=== PATIENT | male | born 1955 | race Two or more races ===

== ENCOUNTER 2020-01-21 16:40 | Inpatient (IN) | payer MEDICARE ==
[~2020-01-21] VITALS: Ht 180.3 cm; Wt 113.4 kg
[2020-01-21] MEDS ORDERED: CEFTRIAXONE 1 GM IV SCH (17:00)
[2020-01-21] MEDS ORDERED: LORAZEPAM 0.5MG TABLET PO PRN (17:45)
[2020-01-21] MEDS ORDERED: ACETAMINOPHEN 325MG TABLET PO PRN (17:45)
[2020-01-21] MEDS ORDERED: METHYL SALICYLATE/MENTHOL CREAM 85GM TOP PRN (17:45)
[2020-01-21] MEDS ORDERED: CLONIDINE 0.1MG TABLET PO PRN (17:45)
[2020-01-21] MEDS ORDERED: ONDANSETRON 4MG ODT PO PRN (18:12)
[2020-01-21] MEDS: HYDROCODONE/ACETAMINOPHEN 5/325MG TABLET PO PRN (18:24)
[2020-01-21 20:00] VITALS: BP 129/72
[2020-01-21 20:09] VITALS: BP 135/73
[2020-01-21] MEDS ORDERED: VANCOMYCIN 2,000 MG in DEXT 5% WATER 500 ML IV SCH (21:00)
[2020-01-21] MEDS: PANTOPRAZOLE 40MG DR TABLET PO SCH (21:19)
[2020-01-21] MEDS ORDERED: CLONIDINE 0.1MG TABLET PO SCH (22:00)
[2020-01-21] MEDS: CEFTRIAXONE 1,000 MG in DEXTROSE 5% WATER 50 ML IV SCH (23:06)
[2020-01-22] MEDS: HYDROCODONE/ACETAMINOPHEN 5/325MG TABLET PO PRN ×6 (01:27→23:45)
[2020-01-22] MEDS ORDERED: AMLO10TA4 PO (01:47)
[2020-01-22] MEDS ORDERED: ATOR10TA PO (01:48)
[2020-01-22] MEDS ORDERED: TAMS-11 PO (01:50)
[2020-01-22] MEDS ORDERED: SENN-170 PO (01:50)
[2020-01-22] MEDS: VANCOMYCIN 1 G PREMIX 200 ML IV SCH ×3 (06:04→23:52)
[2020-01-22 07:15] LABS: BASOPHILS % 0.7 % (0.0-2.0); EOSINOPHILS % 0.6 % (0.0-5.0); HEMATOCRIT. 25.1 % (42.0-52.0); HEMOGLOBIN. 8.4 g/dL (14.0-18.0); LYMPHOCYTES % 9.9 % (20.0-50.0); MEAN CORPUSCULAR HEMOGLOBIN 30.1 pg (28.0-32.0); MEAN CORPUSCULAR VOLUME 90.6 fL (80.0-94.0); MEAN PLATELET VOLUME 8.3 fl (7.4-10.4); NEUTROPHILS % 83.8 % (40.0-76.0); PLATELET 538 x1000/uL (130-400); RED BLOOD CELL COUNT 2.78 mill/uL (4.7-6.1); RED CELL DISTRIBUTION WIDTH 15.4 % (11.6-14.6)
[2020-01-22 07:35] VITALS: BP 134/73
[2020-01-22 07:40] LABS: PROSTRATE SPECIFIC AG TOTAL 3.33 ng/mL (0.0-4.0)
[2020-01-22 08:01] LABS: CHLORIDE 100 mEq/L (98-107)
[2020-01-22] MEDS: PANTOPRAZOLE 40MG DR TABLET PO SCH ×2 (08:10→20:07)
[2020-01-22] MEDS: LIDOCAINE 5% PATCH TOP SCH ×2 (08:11→08:17)
[2020-01-22 08:16] LABS: HDL CHOLESTEROL 30 mg/dL (40-59); LDL CHOLESTEROL 43 mg/dL (5-100); PHOSPHORUS 3.8 mg/dL (2.5-4.9)
[2020-01-22 08:19] LABS: TOTAL IRON BINDING CAPACITY 154 ug/dL (250-450)
[2020-01-22] MEDS ORDERED: NYSTATIN/TRIAMCIN OINT 15GM TOP PRN (10:00)
[2020-01-22] MEDS ORDERED: TAMSULOSIN HCL 0.4MG SR CAPSULE PO SCH (10:00)
[2020-01-22] MEDS: TAMSULOSIN HCL 0.4MG SR CAPSULE PO SCH ×2 (12:11→20:07)
[2020-01-22] MEDS: MAGNESIUM OXIDE 400MG TABLET PO SCH ×2 (12:11→23:54)
[2020-01-22] MEDS: LACTULOSE 20G/30ML UDC PO SCH ×3 (12:12→20:00)
[2020-01-22] MEDS ORDERED: SENNOSIDES/DOCUSATE SOD 8.6/50MG TABLET PO PRN (13:00)
[2020-01-22] MEDS ORDERED: NYSTATIN/TRIAMCIN CREAM 30GM TOP PRN (13:00)
[2020-01-22] MEDS: AMLODIPINE 10MG TABLET PO SCH (15:11)
[2020-01-22 19:35] VITALS: BP 132/65
[2020-01-22] MEDS: CEFTRIAXONE 1,000 MG in DEXTROSE 5% WATER 50 ML IV SCH (20:07)
[2020-01-22] MEDS: ATORVASTATIN CALCIUM 20MG TABLET PO SCH (20:07)
[2020-01-22] MEDS: IRON SUCROSE COMPLEX 100 MG in SODIUM CHLORIDE 0.9% 100 ML IV SCH (21:30)
[2020-01-22 22:58] LABS: FOLIC ACID (FOLATE) SERUM 7.8 ng/mL (>5.38)
[2020-01-23 07:01] LABS: BASOPHILS % 0.2 % (0.0-2.0); HEMATOCRIT. 25.5 % (42.0-52.0); HEMOGLOBIN. 8.5 g/dL (14.0-18.0); LYMPHOCYTES % 10.9 % (20.0-50.0); MEAN CORPUSCULAR HEMOGLOBIN 30.2 pg (28.0-32.0); MEAN CORPUSCULAR VOLUME 91.1 fL (80.0-94.0); MEAN PLATELET VOLUME 7.8 fl (7.4-10.4); MONOCYTES % 6.6 % (2.0-8.0); NEUTROPHILS % 81.3 % (40.0-76.0); PLATELET 662 x1000/uL (130-400); RED CELL DISTRIBUTION WIDTH 15.3 % (11.6-14.6)
[2020-01-23 07:11] LABS: CHLORIDE 101 mEq/L (98-107)
[2020-01-23 07:19] LABS: VANCOMYCIN TROUGH 17.8 ug/mL (5.0-10.0)
[2020-01-23 08:00] VITALS: BP 135/76
[2020-01-23] MEDS: HYDROCODONE/ACETAMINOPHEN 5/325MG TABLET PO PRN ×4 (08:07→23:47)
[2020-01-23] MEDS: AMLODIPINE 10MG TABLET PO SCH (08:07)
[2020-01-23] MEDS: PANTOPRAZOLE 40MG DR TABLET PO SCH ×2 (08:07→21:28)
[2020-01-23] MEDS: LIDOCAINE 5% PATCH TOP SCH ×2 (08:08→08:25)
[2020-01-23] MEDS ORDERED: TAMSULOSIN HCL 0.4MG SR CAPSULE PO SCH (09:00)
[2020-01-23] MEDS: VANCOMYCIN 1 G PREMIX 200 ML IV SCH (10:23)
[2020-01-23] MEDS: MAGNESIUM OXIDE 400MG TABLET PO SCH ×2 (10:28→21:27)
[2020-01-23] MEDS ORDERED: NA PHOS,M-B/NA PHOS,DI-BA ENEMA 118ML PR SCH (12:00)
[2020-01-23] MEDS ORDERED: VANCOMYCIN 1 G PREMIX 200 ML IV SCH (18:00)
[2020-01-23 20:00] VITALS: BP 129/69
[2020-01-23] MEDS: IRON SUCROSE COMPLEX 100 MG in SODIUM CHLORIDE 0.9% 100 ML IV SCH (21:27)
[2020-01-23] MEDS: CLOTRIMAZOLE/BETAMETHASONE 1/0.05% CREAM 15GM TOP SCH (21:27)
[2020-01-23] MEDS: TAMSULOSIN HCL 0.4MG SR CAPSULE PO SCH (21:28)
[2020-01-23] MEDS: ATORVASTATIN CALCIUM 20MG TABLET PO SCH (21:28)
[2020-01-24] MEDS: HYDROCODONE/ACETAMINOPHEN 5/325MG TABLET PO PRN ×3 (06:07→16:46)
[2020-01-24 06:43] LABS: BASOPHILS % 0.3 % (0.0-2.0); EOSINOPHILS % 0.8 % (0.0-5.0); HEMATOCRIT. 25.1 % (42.0-52.0); HEMOGLOBIN. 8.6 g/dL (14.0-18.0); LYMPHOCYTES % 12.6 % (20.0-50.0); MEAN CORPUSCULAR HEMOGLOBIN 30.8 pg (28.0-32.0); MEAN CORPUSCULAR VOLUME 89.5 fL (80.0-94.0); MEAN PLATELET VOLUME 7.5 fl (7.4-10.4); MONOCYTES % 7.6 % (2.0-8.0); NEUTROPHILS % 78.7 % (40.0-76.0); PLATELET 691 x1000/uL (130-400); RED CELL DISTRIBUTION WIDTH 15.2 % (11.6-14.6)
[2020-01-24 07:02] LABS: CHLORIDE 101 mEq/L (98-107)
[2020-01-24 07:35] VITALS: BP 132/67
[2020-01-24] MEDS: PANTOPRAZOLE 40MG DR TABLET PO SCH ×2 (08:10→21:34)
[2020-01-24] MEDS: AMLODIPINE 10MG TABLET PO SCH (08:11)
[2020-01-24] MEDS: LIDOCAINE 5% PATCH TOP SCH (08:14)
[2020-01-24] MEDS: CLOTRIMAZOLE/BETAMETHASONE 1/0.05% CREAM 15GM TOP SCH ×2 (08:17→21:00)
[2020-01-24] MEDS: MAGNESIUM OXIDE 400MG TABLET PO SCH ×2 (11:02→21:34)
[2020-01-24 20:00] VITALS: BP 117/57
[2020-01-24] MEDS: ATORVASTATIN CALCIUM 20MG TABLET PO SCH (21:34)
[2020-01-24] MEDS: TAMSULOSIN HCL 0.4MG SR CAPSULE PO SCH (21:34)
[2020-01-25 00:22] LABS: CLARITY URINE CLEAR (CLEAR); COLOR URINE YELLOW (YELLOW); KETONES URINE NEGATIVE (NEGATIVE); LEUKOCYTE ESTERASE URINE NEGATIVE (NEGATIVE); NITRITE URINE NEGATIVE (NEGATIVE); OCCULT BLOOD URINE TRACE (NEGATIVE); PH URINE 7.5 (4.5-8.0); PROTEIN URINE NEGATIVE (NEGATIVE); SPECIFIC GRAVITY URINE 1.014 (1.005-1.030)
[2020-01-25] MEDS: HYDROCODONE/ACETAMINOPHEN 5/325MG TABLET PO PRN ×4 (00:46→18:58)
[2020-01-25 07:42] VITALS: BP 141/65
[2020-01-25] MEDS: PANTOPRAZOLE 40MG DR TABLET PO SCH ×2 (08:41→21:25)
[2020-01-25] MEDS: FERROUS SULFATE 325MG TABLET PO SCH ×2 (08:42→17:02)
[2020-01-25] MEDS: AMLODIPINE 10MG TABLET PO SCH (08:42)
[2020-01-25] MEDS: LIDOCAINE 5% PATCH TOP SCH ×2 (08:43→08:57)
[2020-01-25] MEDS: CLOTRIMAZOLE/BETAMETHASONE 1/0.05% CREAM 15GM TOP SCH ×2 (08:43→21:00)
[2020-01-25 08:50] LABS: BASOPHILS % 0.4 % (0.0-2.0); EOSINOPHILS % 0.8 % (0.0-5.0); HEMATOCRIT. 26.7 % (42.0-52.0); HEMOGLOBIN. 8.8 g/dL (14.0-18.0); LYMPHOCYTES % 14.5 % (20.0-50.0); MEAN CORPUSCULAR HEMOGLOBIN 29.9 pg (28.0-32.0); MEAN CORPUSCULAR VOLUME 90.5 fL (80.0-94.0); MEAN PLATELET VOLUME 7.4 fl (7.4-10.4); MONOCYTES % 7.7 % (2.0-8.0); NEUTROPHILS % 76.6 % (40.0-76.0); PLATELET 778 x1000/uL (130-400); RED BLOOD CELL COUNT 2.95 mill/uL (4.7-6.1); RED CELL DISTRIBUTION WIDTH 14.9 % (11.6-14.6)
[2020-01-25 09:11] LABS: CHLORIDE 100 mEq/L (98-107)
[2020-01-25] MEDS: MAGNESIUM OXIDE 400MG TABLET PO SCH (09:31)
[2020-01-25 11:39] LABS: HEPATITIS B SURFACE ANTIGEN NEGATIVE
[2020-01-25 12:08] LABS: HEPATITIS A AB IGM NEGATIVE (NEGATIVE)
[2020-01-25 13:47] VITALS: BP 100/82
[2020-01-25] MEDS ORDERED: METHOCARBAMOL 500MG TABLET PO PRN (18:15)
[2020-01-25 18:54] VITALS: BP 130/65
[2020-01-25 20:00] VITALS: BP 122/61
[2020-01-25] MEDS: ATORVASTATIN CALCIUM 20MG TABLET PO SCH (21:25)
[2020-01-25] MEDS: TAMSULOSIN HCL 0.4MG SR CAPSULE PO SCH (21:26)
[2020-01-26] MEDS: MAGNESIUM OXIDE 400MG TABLET PO SCH ×3 (02:21→20:58)
[2020-01-26] MEDS: GABAPENTIN 300MG CAPSULE PO SCH ×4 (02:21→20:51)
[2020-01-26] MEDS: HYDROCODONE/ACETAMINOPHEN 5/325MG TABLET PO PRN ×4 (02:31→20:53)
[2020-01-26 06:59] LABS: BASOPHILS % 0.9 % (0.0-2.0); CHLORIDE 101 mEq/L (98-107); EOSINOPHILS % 1.4 % (0.0-5.0); HEMATOCRIT. 25.4 % (42.0-52.0); HEMOGLOBIN. 8.7 g/dL (14.0-18.0); LYMPHOCYTES % 15.9 % (20.0-50.0); MEAN CORPUSCULAR HEMOGLOBIN 30.6 pg (28.0-32.0); MEAN CORPUSCULAR VOLUME 89.5 fL (80.0-94.0); MEAN PLATELET VOLUME 7.1 fl (7.4-10.4); MONOCYTES % 9.1 % (2.0-8.0); NEUTROPHILS % 72.7 % (40.0-76.0); PLATELET 721 x1000/uL (130-400); RED BLOOD CELL COUNT 2.84 mill/uL (4.7-6.1); RED CELL DISTRIBUTION WIDTH 15.4 % (11.6-14.6)
[2020-01-26 07:55] VITALS: BP 119/65
[2020-01-26] MEDS: FERROUS SULFATE 325MG TABLET PO SCH ×2 (08:50→16:15)
[2020-01-26] MEDS: PANTOPRAZOLE 40MG DR TABLET PO SCH ×2 (08:50→20:53)
[2020-01-26] MEDS: AMLODIPINE 10MG TABLET PO SCH (08:50)
[2020-01-26] MEDS: LIDOCAINE 5% PATCH TOP SCH (08:51)
[2020-01-26] MEDS: CLOTRIMAZOLE/BETAMETHASONE 1/0.05% CREAM 15GM TOP SCH ×2 (08:54→20:56)
[2020-01-26 10:33] VITALS: BP_SYST 78; BP_SYST 99; BP_DIAS 57; BP_DIAS 58
[2020-01-26 11:05] LABS: CREATINE KINASE 22 IU/L (39-308)
[2020-01-26 11:07] VITALS: BP 100/64
[2020-01-26] MEDS: FLUDROCORTISONE ACETATE 0.1MG TABLET PO SCH (14:13)
[2020-01-26 14:35] VITALS: BP 115/60
[2020-01-26 20:16] VITALS: BP 121/62
[2020-01-26] MEDS: ATORVASTATIN CALCIUM 20MG TABLET PO SCH (20:51)
[2020-01-26] MEDS: TAMSULOSIN HCL 0.4MG SR CAPSULE PO SCH (20:53)
[2020-01-27] MEDS: HYDROCODONE/ACETAMINOPHEN 5/325MG TABLET PO PRN ×3 (04:01→21:10)
[2020-01-27] MEDS: GABAPENTIN 300MG CAPSULE PO SCH ×3 (06:30→21:04)
[2020-01-27 06:54] LABS: BASOPHILS % 0.6 % (0.0-2.0); EOSINOPHILS % 1.7 % (0.0-5.0); HEMATOCRIT. 24.9 % (42.0-52.0); HEMOGLOBIN. 8.4 g/dL (14.0-18.0); LYMPHOCYTES % 18.3 % (20.0-50.0); MEAN CORPUSCULAR HEMOGLOBIN 30.1 pg (28.0-32.0); MEAN CORPUSCULAR VOLUME 89.5 fL (80.0-94.0); MEAN PLATELET VOLUME 7.1 fl (7.4-10.4); MONOCYTES % 10.3 % (2.0-8.0); NEUTROPHILS % 69.1 % (40.0-76.0); PLATELET 689 x1000/uL (130-400); RED BLOOD CELL COUNT 2.79 mill/uL (4.7-6.1); RED CELL DISTRIBUTION WIDTH 15.5 % (11.6-14.6)
[2020-01-27 07:01] LABS: CHLORIDE 101 mEq/L (98-107)
[2020-01-27] MEDS: PANTOPRAZOLE 40MG DR TABLET PO SCH ×2 (08:25→21:03)
[2020-01-27] MEDS: FLUDROCORTISONE ACETATE 0.1MG TABLET PO SCH (08:26)
[2020-01-27] MEDS: FERROUS SULFATE 325MG TABLET PO SCH ×2 (08:26→16:51)
[2020-01-27] MEDS: CLOTRIMAZOLE/BETAMETHASONE 1/0.05% CREAM 15GM TOP SCH ×2 (08:28→21:00)
[2020-01-27] MEDS: LIDOCAINE 5% PATCH TOP SCH (08:29)
[2020-01-27 08:30] VITALS: BP 132/68
[2020-01-27 11:00] VITALS: BP 119/67
[2020-01-27] MEDS: MAGNESIUM OXIDE 400MG TABLET PO SCH (11:04)
[2020-01-27] MEDS ORDERED: FLOR PO (13:07)
[2020-01-27] MEDS ORDERED: GABA-531 PO (13:07)
[2020-01-27] MEDS ORDERED: ATOR20TA PO (13:07)
[2020-01-27] MEDS ORDERED: TAMS-11 PO (13:07)
[2020-01-27 20:00] VITALS: BP 127/66
[2020-01-27] MEDS: TAMSULOSIN HCL 0.4MG SR CAPSULE PO SCH (21:03)
[2020-01-27] MEDS: ATORVASTATIN CALCIUM 20MG TABLET PO SCH (21:04)
[2020-01-28] MEDS: GABAPENTIN 300MG CAPSULE PO SCH (05:36)
[2020-01-28] MEDS: HYDROCODONE/ACETAMINOPHEN 5/325MG TABLET PO PRN (05:39)
[2020-01-28 06:00] LABS: BASOPHILS % 0.4 % (0.0-2.0); EOSINOPHILS % 1.9 % (0.0-5.0); HEMATOCRIT. 25.9 % (42.0-52.0); HEMOGLOBIN. 8.7 g/dL (14.0-18.0); LYMPHOCYTES % 19.2 % (20.0-50.0); MEAN CORPUSCULAR VOLUME 89.6 fL (80.0-94.0); MEAN PLATELET VOLUME 6.6 fl (7.4-10.4); MONOCYTES % 7.5 % (2.0-8.0); PLATELET 674 x1000/uL (130-400); RED BLOOD CELL COUNT 2.89 mill/uL (4.7-6.1); RED CELL DISTRIBUTION WIDTH 15.2 % (11.6-14.6)
[2020-01-28 06:35] LABS: CHLORIDE 100 mEq/L (98-107)
[2020-01-28 07:08] LABS: 25-HYDROXY VITAMIN D3 14 ng/mL (.)
[2020-01-28 08:00] VITALS: BP 112/65
[2020-01-28] MEDS: FLUDROCORTISONE ACETATE 0.1MG TABLET PO SCH (08:54)
[2020-01-28] MEDS: PANTOPRAZOLE 40MG DR TABLET PO SCH (08:54)
[2020-01-28] MEDS: FERROUS SULFATE 325MG TABLET PO SCH (08:54)
[2020-01-28] MEDS: LIDOCAINE 5% PATCH TOP SCH ×2 (08:55→09:00)
[2020-01-28] MEDS: CLOTRIMAZOLE/BETAMETHASONE 1/0.05% CREAM 15GM TOP SCH (08:56)
[2020-01-28 11:13] VITALS: BP 118/68
[2020-01-28] MEDS ORDERED: NA PHOS,M-B/NA PHOS,DI-BA ENEMA 118ML PR NR (13:15)
[2020-01-28] MEDS ORDERED: ERGOCALCIFEROL 50000UNITS CAPSULE PO SCH (14:00)
== END 2020-01-28 13:36 | disposition home health service (06) | DRG 70 ==
PROVIDERS: ADMIT Physical Medicine & Rehabilitation Spinal Cord Injury Medicine; ATTEND Internal Medicine Nephrology
DX: G93.40 Encephalopathy, unspecified (principal); A41.9 Sepsis, unspecified organism; K27.4 Chronic or unspecified peptic ulcer, site unspecified, with hemorrhage; N17.9 Acute kidney failure, unspecified; E44.0 Moderate protein-calorie malnutrition; E87.1 Hypo-osmolality and hyponatremia; J98.11 Atelectasis; D69.6 Thrombocytopenia, unspecified; R53.81 Other malaise; M50.30 Other cervical disc degeneration, unspecified cervical region; D50.9 Iron deficiency anemia, unspecified; N40.0 Benign prostatic hyperplasia without lower urinary tract symptoms; I10 Essential (primary) hypertension; E55.9 Vitamin D deficiency, unspecified; B35.3 Tinea pedis; D63.8 Anemia in other chronic diseases classified elsewhere; E11.9 Type 2 diabetes mellitus without complications; I95.1 Orthostatic hypotension; K76.89 Other specified diseases of liver; M20.41 Other hammer toe(s) (acquired), right foot; M20.42 Other hammer toe(s) (acquired), left foot; Z90.49 Acquired absence of other specified parts of digestive tract; M51.16 Intervertebral disc disorders with radiculopathy, lumbar region; M47.26 Other spondylosis with radiculopathy, lumbar region; M48.061 Spinal stenosis, lumbar region without neurogenic claudication; M21.611 Bunion of right foot; M21.612 Bunion of left foot; M20.12 Hallux valgus (acquired), left foot; M20.11 Hallux valgus (acquired), right foot
CPT/HCPCS: 36415; 71045; 76700; 80048; 80053; 80061; 80202; 81003; 82140; 82306; 82550; 82607; 82728; 82746; 83036; 83540; 83550; 83735; 83880; 84100; 84134; 84153; 84443; 85025; 85044; 86705; 86709; 86803; 87340; 92523; 92610; 93970; 97110; 97116; 97162; 97166; 97530; 97535; J0696; J3370; J7050; J7060; G0103